=== PATIENT | female | born 1970 | race Two or more races ===

== ENCOUNTER → 2017-08-03 | Outpatient (CLI) | payer OTHER ==
[~2017-08-03] MED LIST: BENADRYL25 MG PO; PROTONIX40 M1 PO; SYNTHROID125 MCG PO; SYNTHROID50 MCG; ULTRACET PO; ZITHROMAX500 MG PO
== END | disposition home or self-care (01) ==
LOC: NUCLEAR 07-03 10:00
DX: M81.0 Age-related osteoporosis without current pathological fracture (principal)

== ENCOUNTER 2017-09-21 10:04 | Outpatient (CLI) | payer OTHER ==
[~2017-09-21] VITALS: Ht 170.2 cm; Wt 77.1 kg
== END 2017-09-21 10:20 | disposition home or self-care (01) ==
LOC: OFIC 805 10:04
DX: J30.89 Other allergic rhinitis (principal); J34.89 Other specified disorders of nose and nasal sinuses; R49.0 Dysphonia

== ENCOUNTER 2017-12-18 08:29 | Outpatient (CLI) | payer OTHER | END 2017-12-18 08:45 | disposition home or self-care (01) | LOC: LAB 08:29 | DX: M81.0 Age-related osteoporosis without current pathological fracture (principal); N95.1 Menopausal and female climacteric states; N39.0 Urinary tract infection, site not specified; R82.79 Other abnormal findings on microbiological examination of urine ==

== ENCOUNTER 2017-12-18 12:11 | Outpatient (CLI) | payer OTHER | END 2017-12-18 12:17 | disposition home or self-care (01) | LOC: MAMO-SONO 12:11 | DX: Z12.31 Encounter for screening mammogram for malignant neoplasm of breast (principal); N61.0 Mastitis without abscess ==

== ENCOUNTER 2018-01-27 07:21 | Outpatient (CLI) | payer OTHER | END 2018-01-27 07:22 | disposition home or self-care (01) | LOC: SONOGRAMA 07:21 | DX: M51.36 Other intervertebral disc degeneration, lumbar region (principal); E89.0 Postprocedural hypothyroidism; E04.0 Nontoxic diffuse goiter ==

== ENCOUNTER 2018-09-15 12:06 | Emergency (ER) | payer OTHER ==
[~2018-09-15] VITALS: Ht 170.2 cm; Wt 77.1 kg
[2018-09-15] MEDS ORDERED: NEURONTIN300 MG PO (12:51)
== END 2018-09-15 18:26 | disposition home or self-care (01) ==
LOC: ER 12:06
DX: R42 Dizziness and giddiness (principal); T42.6X5A Adverse effect of other antiepileptic and sedative-hypnotic drugs, initial encounter

== ENCOUNTER → 2018-12-27 07:12 | Outpatient (CLI) | payer OTHER | END | disposition home or self-care (01) | LOC: LAB 07:12 | DX: Z44.9 Encounter for fitting and adjustment of unspecified external prosthetic device (principal); Z81.3 Family history of other psychoactive substance abuse and dependence ==

== ENCOUNTER → 2018-12-27 | Outpatient (CLI) | payer OTHER ==
[~2018-12-27] MED LIST changes: +NEURONTIN300 MG PO
== END | disposition home or self-care (01) ==
LOC: MAMO-SONO 07:58
DX: Z78.9 Other specified health status (principal); Z12.31 Encounter for screening mammogram for malignant neoplasm of breast

== ENCOUNTER 2019-03-02 08:53 | Outpatient (CLI) | payer OTHER ==
[~2019-03-02] VITALS: Ht 152.4 cm; Wt 79.4 kg
== END 2019-03-02 10:36 | disposition home or self-care (01) ==
LOC: OFIC 805 08:53
DX: H69.90 Unspecified Eustachian tube disorder, unspecified ear (principal); H92.02 Otalgia, left ear; J30.89 Other allergic rhinitis

== ENCOUNTER 2024-03-18 09:49 | Outpatient (CLI) | payer OTHER | END 2024-03-18 10:02 | disposition home or self-care (01) | LOC: RAD 09:49 | PROVIDERS: ATTEND General Practice | DX: M54.40 Lumbago with sciatica, unspecified side (principal) ==

== ENCOUNTER 2024-06-29 07:10 | Outpatient (CLI) | payer OTHER | END 2024-06-29 07:20 | disposition home or self-care (01) | LOC: MAMO-SONO 07:10 | PROVIDERS: ATTEND Obstetrics & Gynecology Gynecology | DX: N60.11 Diffuse cystic mastopathy of right breast (principal); N60.12 Diffuse cystic mastopathy of left breast; M54.51 Vertebrogenic low back pain ==

== ENCOUNTER 2025-02-17 10:20 | Outpatient (CLI) | payer OTHER | END 2025-02-17 10:24 | disposition home or self-care (01) | LOC: SONOGRAMA 10:20 | PROVIDERS: ATTEND General Practice | DX: C73 Malignant neoplasm of thyroid gland (principal); E04.9 Nontoxic goiter, unspecified ==